=== PATIENT | female | born 1955 | race Hispanic/Latino ===

== ENCOUNTER 2018-04-09 22:35 | Inpatient (IN) | payer MEDICARE ==
[2018-04-09] MEDS ORDERED: ATIVAN IV ONE (23:07)
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
[2018-04-09 23:35] LABS: Hematocrit 32.1 % (30.3-42.9); Hemoglobin 10.2 gm/dl (10.1-14.3); Mean Corpuscular HGB Conc 32 % (30-34); Mean Corpuscular Volume 80 fl (79-97); Platelet Count 107 K/mm3 (140-440)
[2018-04-09 23:46] LABS: INR 1.08 (0.87-1.13)
[2018-04-09 23:47] LABS: Partial Thromboplastin Time 26.3 Sec. (24.2-36.6)
[2018-04-09 23:49] LABS: Mean Corpuscular Hemoglobin 26 pg (28-32)
[2018-04-10 00:10] LABS: BUN/Creatinine Ratio 13; Blood Urea Nitrogen 12 mg/dL (7-17); Hemolysis Index 0
[2018-04-10 00:14] LABS: Free T4 (Free Thyroxine) 1.4 ng/dL (0.76-1.46)
[2018-04-10 00:33] LABS: Creatine Kinase MB < 1.0 ng/mL (0.0-4.0)
--- NOTE | 2018-04-10 00:57 | XRay Report ---
FINAL REPORT PROCEDURE: XR CHEST 1V AP TECHNIQUE: Chest radiograph anteroposterior view. CPT 33231 HISTORY: chest pain COMPARISON: No prior studies are available for comparison. FINDINGS: Heart: Normal. Mediastinum/Vessels: Normal. Lungs/Pleural space: Normal. Bony thorax: No acute osseous abnormality. Life support devices: None. IMPRESSION: No acute cardiopulmonary abnormality.
[2018-04-10] MEDS ORDERED: NACL 0.9% 1000 ML 1,000 ML IV ONE (01:08)
--- NOTE | 2018-04-10 01:45 | Cat Scan Report ---
FINAL REPORT PROCEDURE: CT HEAD/BRAIN WO CON TECHNIQUE: Computerized tomography of the head was performed without contrast material. HISTORY: syncope COMPARISON: No prior studies are available for comparison. FINDINGS: Skull and scalp: Normal. Paranasal sinuses: Normal. Ventricles and subarachnoid spaces: Normal. Cerebrum: No evidence of hemorrhage, acute infarction or mass . Cerebellum and brainstem: No evidence of hemorrhage, acute infarction or mass. Vasculature: Normal. Comments: None. IMPRESSION: Normal Examination
[2018-04-10] MEDS ORDERED: ASPIRIN PO ONE (01:48)
[2018-04-10] MEDS ORDERED: HumuLIN R IV ONE (01:57)
[2018-04-10] MEDS ORDERED: ZOFRAN IV PRN (03:11)
[2018-04-10] MEDS ORDERED: SODIUM CHLORIDE FLUSH SYRINGE 10 ML IV PRN ×2 (03:11)
[2018-04-10] MEDS ORDERED: D50W (25GM) Syringe IV PRN ×2 (03:11→05:39)
[2018-04-10] MEDS ORDERED: TYLENOL PO PRN (03:11)
[2018-04-10 03:32] LABS: Basophils % (Manual) 0 % (0.0-1.8); Total Cells Counted 100
[2018-04-10 03:33] LABS: Hypochromasia 1+; Platelet Estimate Consistent w Auto
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
[2018-04-10] MEDS ORDERED: VISTARIL PO SCH (05:00)
[2018-04-10 05:42] LABS: Hematocrit 30.8 % (30.3-42.9); Hemoglobin 9.8 gm/dl (10.1-14.3); Mean Corpuscular HGB Conc 32 % (30-34); Mean Corpuscular Volume 80 fl (79-97); Platelet Count 110 K/mm3 (140-440); Red Blood Count 3.86 M/mm3 (3.65-5.03); Red Cell Distribution Width 16.8 % (13.2-15.2)
[2018-04-10 05:43] LABS: Mean Corpuscular Hemoglobin 26 pg (28-32)
[2018-04-10] MEDS ORDERED: K-DUR PO ONE (05:50)
[2018-04-10] MEDS ORDERED: NACL 0.9% 1000 ML 1,000 ML IV SCH (06:00)
[2018-04-10 06:50] LABS: Band Neutrophils # (Manual) 0.1 K/mm3; Basophils % (Manual) 0 % (0.0-1.8); Myelocytes # (Manual) 0.1 K/mm3; Total Cells Counted 100
[2018-04-10 06:51] LABS: Anisocytosis 1+; Hypochromasia 1+; Platelet Estimate Consistent w Auto
[2018-04-10 07:26] LABS: BUN/Creatinine Ratio 13; Blood Urea Nitrogen 12 mg/dL (7-17); Calcium 8.6 mg/dL (8.4-10.2); Chol/HDL Ratio 3.38 %; HDL Cholesterol 31 mg/dL (40-59); Hemolysis Index 9; LDL Cholesterol,Direct 67 mg/dL (50-130)
[2018-04-10] MEDS ORDERED: HumaLOG SUB-Q SCH (07:30)
[2018-04-10] MEDS: HumaLOG SUB-Q SCH ×4 (08:05→22:50)
[2018-04-10] MEDS: SODIUM CHLORIDE FLUSH SYRINGE 10 ML IV SCH ×2 (09:38→22:50)
[2018-04-10] MEDS ORDERED: LOVENOX SUB-Q SCH ×2 (10:00)
--- NOTE | 2018-04-10 13:01 | Progress Note ---
Assessment and Plan Assessment and plan: Syncope. We will follow echocardiogram and carotid ultrasound. Cardiology consultation. Chest pain. Patient will be scheduled for stress thallium in the morning. CE q6 hrs x 3 Continue Asa, Morphine PRN for chest pain Uncontrolled diabetes mellitus type 2. Continue Accu-Cheks and sliding scale insulin. Hypertension. Continue current hypertensive medications. Hyperlipidemia. Peripheral neuropathy. Anxiety disorder. History Interval history: No new issues overnight. Patient currently denies any chest pain. Hospitalist Physical - Constitutional Vitals: Temp Pulse Resp BP Pulse Ox 98.3 F 108 H 16 81/60 96 04/10/18 08:15 04/10/18 06:00 04/10/18 06:00 04/10/18 06:00 04/10/18 06:00 General appearance: Present: no acute distress - EENT Eyes: Present: PERRL, EOM intact ENT: hearing intact, clear oral mucosa, dentition normal - Neck Neck: Present: supple, normal ROM - Respiratory Respiratory effort: normal Respiratory: bilateral: CTA - Cardiovascular Rhythm: regular Heart Sounds: Present: S1 & S2. Absent: gallop, rub - Extremities Extremities: no ischemia, No edema, Full ROM - Abdominal General gastrointestinal: soft, non-tender, non-distended, normal bowel sounds - Integumentary Integumentary: Present: clear, warm, dry - Neurologic Neurologic: CNII-XII intact, moves all extremities Results - Labs CBC & Chem 7: 04/10/18 05:18 04/10/18 05:18 Labs: Laboratory Last Values WBC 2.6 K/mm3 (4.5-11.0) L 04/10/18 05:18 RBC 3.86 M/mm3 (3.65-5.03) 04/10/18 05:18 Hgb 9.8 gm/dl (10.1-14.3) L 04/10/18 05:18 Hct 30.8 % (30.3-42.9) 04/10/18 05:18 MCV 80 fl (79-97) 04/10/18 05:18 MCH 26 pg (28-32) L 04/10/18 05:18 MCHC 32 % (30-34) 04/10/18 05:18 RDW 16.8 % (13.2-15.2) H 04/10/18 05:18 Plt Count 110 K/mm3 (140-440) L 04/10/18 05:18 Lymph % (Auto) Gas Compressor Operator 04/10/18 05:18 Add Manual Diff Complete 04/10/18 05:18 Total Counted 100 04/10/18 05:18 Seg Neutrophils % Gas Compressor Operator 04/10/18 05:18 Seg Neuts % (Manual) 21.0 % (40.0-70.0) L 04/10/18 05:18 Band Neutrophils % 3.0 % 04/10/18 05:18 Lymphocytes % (Manual) 68.0 % (13.4-35.0) H 04/10/18 05:18 Reactive Lymphs % (Man) 0 % 04/10/18 05:18 Monocytes % (Manual) 4.0 % (0.0-7.3) 04/10/18 05:18 Eosinophils % (Manual) 2.0 % (0.0-4.3) 04/10/18 05:18 Basophils % (Manual) 0 % (0.0-1.8) 04/10/18 05:18 Metamyelocytes % 0 % 04/10/18 05:18 Myelocytes % 2.0 % 04/10/18 05:18 Promyelocytes % 0 % 04/10/18 05:18 Blast Cells % 0 % 04/10/18 05:18 Nucleated RBC % Not Reportable 04/10/18 05:18 Seg Neutrophils # Man 0.5 K/mm3 (1.8-7.7) L 04/10/18 05:18 Band Neutrophils # 0.1 K/mm3 04/10/18 05:18 Lymphocytes # (Manual) 1.8 K/mm3 (1.2-5.4) 04/10/18 05:18 Abs React Lymphs (Man) 0.0 K/mm3 04/10/18 05:18 Monocytes # (Manual) 0.1 K/mm3 (0.0-0.8) 04/10/18 05:18 Eosinophils # (Manual) 0.1 K/mm3 (0.0-0.4) 04/10/18 05:18 Basophils # (Manual) 0.0 K/mm3 (0.0-0.1) 04/10/18 05:18 Metamyelocytes # 0.0 K/mm3 04/10/18 05:18 Myelocytes # 0.1 K/mm3 04/10/18 05:18 Promyelocytes # 0.0 K/mm3 04/10/18 05:18 Blast Cells # 0.0 K/mm3 04/10/18 05:18 WBC Morphology Not Reportable 04/10/18 05:18 Hypersegmented Neuts Not Reportable 04/10/18 05:18 Hyposegmented Neuts Not Reportable 04/10/18 05:18 Hypogranular Neuts Not Reportable 04/10/18 05:18 Smudge Cells Not Reportable 04/10/18 05:18 Toxic Granulation Not Reportable 04/10/18 05:18 Toxic Vacuolation Not Reportable 04/10/18 05:18 Dohle Bodies Not Reportable 04/10/18 05:18 Pelger-Huet Anomaly Not Reportable 04/10/18 05:18 Alice Rods Not Reportable 04/10/18 05:18 Platelet Estimate Consistent w auto 04/10/18 05:18 Clumped Platelets Not Reportable 04/10/18 05:18 Plt Clumps, EDTA Not Reportable 04/10/18 05:18 Large Platelets Not Reportable 04/10/18 05:18 Giant Platelets Not Reportable 04/10/18 05:18 Platelet Satelliting Not Reportable 04/10/18 05:18 Plt Morphology Comment Not Reportable 04/10/18 05:18 RBC Morphology Not Reportable 04/10/18 05:18 Dimorphic RBCs Not Reportable 04/10/18 05:18 Polychromasia Not Reportable 04/10/18 05:18 Hypochromasia 1+ 04/10/18 05:18 Poikilocytosis Not Reportable 04/10/18 05:18 Anisocytosis 1+ 04/10/18 05:18 Microcytosis Not Reportable 04/10/18 05:18 Macrocytosis Not Reportable 04/10/18 05:18 Spherocytes Not Reportable 04/10/18 05:18 Pappenheimer Bodies Not Reportable 04/10/18 05:18 Sickle Cells Not Reportable 04/10/18 05:18 Target Cells Not Reportable 04/10/18 05:18 Tear Drop Cells Not Reportable 04/10/18 05:18 Ovalocytes Not Reportable 04/10/18 05:18 Helmet Cells Not Reportable 04/10/18 05:18 [place] Bodies Not Reportable 04/10/18 05:18 Agenda Rings Not Reportable 04/10/18 05:18 [place] Cells Not Reportable 04/10/18 05:18 Bite Cells Not Reportable 04/10/18 05:18 Crenated Cell Not Reportable 04/10/18 05:18 Elliptocytes Not Reportable 04/10/18 05:18 Acanthocytes (Spur) Not Reportable 04/10/18 05:18 Rouleaux Not Reportable 04/10/18 05:18 Hemoglobin C Crystals Not Reportable 04/10/18 05:18 Schistocytes Not Reportable 04/10/18 05:18 Malaria parasites Not Reportable 04/10/18 05:18 William Bodies Not Reportable 04/10/18 05:18 Hem Pathologist Commnt No 04/10/18 05:18 PT 14.6 Sec. (12.2-14.9) 04/09/18 23:26 INR 1.08 (0.87-1.13) 04/09/18 23:26 APTT 26.3 Sec. (24.2-36.6) 04/09/18 23:26 D-Dimer 190.74 ng/mlDDU (0-234) 04/09/18 23:26 Sodium 135 mmol/L (137-145) L 04/10/18 05:18 Potassium 3.6 mmol/L (3.6-5.0) 04/10/18 05:18 Chloride 96.3 mmol/L (98-107) L 04/10/18 05:18 Carbon Dioxide 26 mmol/L (22-30) 04/10/18 05:18 Anion Gap 16 mmol/L 04/10/18 05:18 BUN 12 mg/dL (7-17) 04/10/18 05:18 Creatinine 0.9 mg/dL (0.7-1.2) 04/10/18 05:18 Estimated GFR > 60 ml/min 04/10/18 05:18 BUN/Creatinine Ratio 13 % 04/10/18 05:18 Glucose 347 mg/dL (65-100) H 04/10/18 05:18 POC Glucose 313 (70-105) H 04/10/18 08:02 Hemoglobin A1c 13.4 % (4-6) H 04/10/18 05:18 Calcium 8.6 mg/dL (8.4-10.2) 04/10/18 05:18 Total Creatine Kinase 30 units/L (30-135) 04/09/18 23:26 CK-MB (CK-2) < 1.0 ng/mL (0.0-4.0) 04/09/18 23: CK-MB (CK-2) Rel Index 3.3 (0-4) 04/09/18: Troponin T < 0.010 ng/mL (0.00-0.029) 04/10/18 05:18 NT-Pro-B Natriuret Pep 25.29 pg/mL (0-900) 04/09/18 23: Triglycerides 100 mg/dL (2-149) 04/10/18 05:18 Cholesterol 105 mg/dL (50-199) 04/10/18 05:18 LDL Cholesterol Direct 67 mg/dL (50-130) 04/10/18:18 HDL Cholesterol 31 mg/dL (40-59) L 04/10/18 05:18 Cholesterol/HDL Ratio 3.38 % 04/10/18 05:18 TSH 4.640 mlU/mL (0.270-4.200) H 04/09/18: Free T4 1.40 ng/dL (0.76-1.46) 04/09/18:26
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
[2018-04-10] MEDS ORDERED: LANTUS SUB-Q SCH (22:00)
[2018-04-11] MEDS: HumaLOG SUB-Q SCH ×2 (08:30→12:00)
--- NOTE | 2018-04-11 09:57 | Progress Note ---
Assessment and Plan Syncope, likely vasovagal head CT scan negative Leukopenia Thrombocytopenia Hypertension Diabetes -uncontrolled Chest pain, atypical normal MPI 11/2017. normal LVEF by echo 11/2017. No cardiac workup indicated. We will recommend an outpatient 30 day event monitor. Patient will follow up with her primary dogger, Dr Manning, as scheduled. Subjective Date of service: 04/11/18 Interval history: Patient reports she is feeling better. No events on telemetry monitoring overnight. Objective Vital Signs Temp Pulse Pulse Pulse Resp BP BP 04/11/18 07:21 98.4 F 95 H 18 117/64 04/11/18 05:07 98.6 F 96 H 17 146/79 04/11/18 04:57 97 H 131/63 04/11/18 01:01 97.8 F 102 H 18 135/75 04/10/18 23:00 96 H 04/10/18 21:48 99 H 99 H 18 04/10/18 21:17 98.3 F 100 H 18 134/65 04/10/18 20:18 98.5 F 100 H 18 134/65 04/10/18 16:29 98.3 F 101 H 18 105/54 Pulse Ox 04/11/18 07:21 94 04/11/18 05:07 98 04/11/18 04:57 95 04/11/18 01:01 99 04/10/18 23:00 04/10/18 21:48 98 04/10/18 21:17 97 04/10/18 20:18 97 04/10/18 16:29 94 - Physical Examination General: No Apparent Distress HEENT: Positive: PERRL Cardiac: Positive: Reg Rate and Rhythm Neuro: Positive: Grossly Intact
[2018-04-11] MEDS ORDERED: ECOTRIN PO SCH (10:00)
--- NOTE | 2018-04-11 10:31 | Discharge Summary ---
Providers - Providers Date of Admission: 04/10/18 03:12 Date of discharge: 04/11/18 Attending physician: KAREN HOLLOWAY 04/10/18 Consult to Cardiac Rehabilitation [CONS] Routine Reason For Exam: Phase I 04/10/18 03:12 Consult to Dietitian/Nutrition [CONS] Routine Physician Instructions: Reason For Exam: Reason for Consult: Diet education 04/10/18 13:12 Consult to Cardiology [CONS] Routine Consulting Provider: ABHIJEET SUAREZ Reason For Exam: cp, syncope Primary care physician: FINANCIAL ADMINISTRATION OFFICER Hospitalization Reason for admission: cp syncope Condition: Fair Hospital course: This is a 62-year-old female presented through the emergency department with complaints of syncope and chest pain. The patient has a reported past medical history of endometrial cancer, hypertension, diabetes mellitus type 2 and hyperlipidemia. There is no history of coronary artery disease. Her latest cardiac workup was done 3 months ago. She had a normal stress thallium test and a echocardiogram that documents a normal left ventricular ejection fraction of 55%. The patient underwent workup with his CT scan and chest x-ray which were both negative. There is no change in her ECG when compared to prior ECG done 3 months ago. Cardiology recommended an outpatient 30 day event monitor. Patient will follow up with her primary training development manager, Dr Manning, as scheduled. Dedicated discharge time 32 minutes. Disposition: - TO HOME OR SELFCARE Time spent for discharge: 32 - Discharge Diagnoses (1) Chest pain Status: Acute (2) Hyperglycemia Status: Acute (3) Syncope Status: Acute Core Measure Documentation - Palliative Care Palliative Care/ Comfort Measures: Not Applicable - Core Measures Any of the following diagnoses?: none Exam - Constitutional Vitals: Temp Pulse Resp BP Pulse Ox 98.4 F 95 H 18 117/64 94 04/11/18 07:21 04/11/18 07:21 04/11/18 07:21 04/11/18 07:21 04/11/18 07:21 General appearance: Present: no acute distress, well-nourished - EENT Eyes: Present: PERRL ENT: hearing intact, clear oral mucosa - Neck Neck: Present: supple, normal ROM - Respiratory Respiratory effort: normal Respiratory: bilateral: CTA - Cardiovascular Heart Sounds: Present: S1 & S2. Absent: rub, click - Extremities Extremities: pulses symmetrical, No edema Peripheral Pulses: within normal limits - Abdominal General gastrointestinal: Present: soft, non-tender, non-distended, normal bowel sounds Female genitourinary: Present: normal - Integumentary Integumentary: Present: clear, warm, dry - Musculoskeletal Musculoskeletal: gait normal, strength equal bilaterally - Psychiatric Psychiatric: appropriate mood/affect, intact judgment & insight - Neurologic Neurologic: CNII-XII intact, moves all extremities Plan Activity: no restrictions Weight Bearing Status: Full Weight Bearing Diet: diabetic Additional Instructions: Plan for 30 day event monitoring with cardiologyDr. Kerri Follow up with: PRIMARY MD SANJAY [Primary Care Provider] - 3-5 Days WASHINGTON AMNNING MD [Staff Physician] - 7 Days
[2018-04-11] MEDS: SODIUM CHLORIDE FLUSH SYRINGE 10 ML IV SCH (11:00)
[2018-04-11 11:08] VITALS: BP 114/63
== END 2018-04-11 14:03 | disposition home or self-care (01) | DRG 312 ==
LOC: ED 22:35 → 4A 04-10 03:12
PROVIDERS: ADMIT Internal Medicine; ATTEND Hospitalist
DX: R55 Syncope and collapse (principal); R07.89 Other chest pain; Z85.89 Personal history of malignant neoplasm of other organs and systems; I10 Essential (primary) hypertension; D72.819 Decreased white blood cell count, unspecified; D69.6 Thrombocytopenia, unspecified; E78.5 Hyperlipidemia, unspecified; E11.42 Type 2 diabetes mellitus with diabetic polyneuropathy; F41.9 Anxiety disorder, unspecified; E11.65 Type 2 diabetes mellitus with hyperglycemia; Z90.49 Acquired absence of other specified parts of digestive tract; Z90.710 Acquired absence of both cervix and uterus; Z82.49 Family history of ischemic heart disease and other diseases of the circulatory system; Z83.3 Family history of diabetes mellitus
CPT/HCPCS: 36415; 70450; 71045; 80048; 80061; 82550; 82553; 82962; 83036; 83880; 84439; 84443; 84484; 85007; 85025; 85379; 85610; 85730; 93005; 93010; 93306; 93880; J1815; J7030; Q0177